=== PATIENT | female | born 1955 | race Hispanic/Latino ===

== ENCOUNTER 2016-09-25 16:32 | Observation (INO) | payer OTHER ==
[2016-09-25 16:34] VITALS: BMI 24.6
[2016-09-25] MEDS ORDERED: Sodium Chloride 0.9% 500 ML IV STA (16:40)
--- NOTE | 2016-09-25 16:44 | ED PDOC ---
Arrival/HPI - General Chief Complaint: Weakness/Neurological Deficit Time Seen by Provider: 09/25/16 16:33 Historian: Patient - History of Present Illness Time/Duration: Prior to Arrival Symptom Onset: Sudden Symptom Course: Improving Severity Level: Moderate Activities at Onset: Rest Associated Symptoms (Text): 09/25/16 16:41 Patient complains of acute onset just prior to arrival of severe lightheadedness and near syncope. She reports that her entire body felt hot. She had generalized numbness. She felt as if her right hand was not present. No chest pain palpitations or dyspnea. No abdominal pain nausea or vomiting. There is not vertigo or a spinning sensation. Patient reports that it is worse when she stands up. She is actually starting to feel much better. She has never experienced this previously. History of migraine headaches, but this is not similar. There is no headache. Past Medical History - Past History Past History: No Previous - Integumentary Hx Dermatological Disorder: No - Musculoskeletal/Rheumatological Hx Musculoskeletal Disorders: No - Gastrointestinal Hx Gastrointestinal Disorders: No - Genitourinary/Gynecological Hx Genitourinary Disorders: No - Psychiatric Hx Psychophysiologic Disorder: Yes Hx Anxiety: Yes Hx Substance Use: No - Anesthesia Hx Anesthesia: No Family/Social History - Physician Review Nursing Documentation Reviewed: Yes Family/Social History: Unknown Family HX Smoking Status: Never Smoked Hx Alcohol Use: Yes Frequency of alcohol use: Socially Hx Substance Use: No Allergies/Home Meds Allergies/Adverse Reactions: Allergies Penicillins Allergy (Verified 09/25/16 16:35) URTICARIA Home Medications: Home Meds Medication Instructions Recorded Confirmed Alprazolam [Xanax] 0.5 mg PO Q6H PRN 09/25/16 09/25/16 Review of Systems - Physician Review All systems were reviewed & negative as marked: Yes - Review of Systems Constitutional: Fatigue. absent: Fevers Respiratory: Normal. absent: SOB, Cough, Wheezing Cardiovascular: absent: Chest Pain, Palpitations, Syncope Gastrointestinal: absent: Abdominal Pain, Nausea, Vomiting Genitourinary Female: absent: Dysuria, Frequency, Hematuria Neurological: absent: Headache, Dizziness, Focal Weakness, Gait Changes, Speech Changes, Facial Droop, Disequilibrium, Seizure Physical Exam Vital Signs Temp Pulse Resp BP Pulse Ox 09/25/16 16:42 77 17 129/72 98 09/25/16 16:36 98.6 F Temperature: Afebrile Blood Pressure: Normal Pulse: Regular Respiratory Rate: Normal Appearance: Positive for: Well-Appearing, Non-Toxic, Comfortable Pain Distress: None Mental Status: Positive for: Alert and Oriented X 3 - Systems Exam Head: Present: Atraumatic, Normocephalic Pupils: Present: PERRL Extroacular Muscles: Present: EOMI Conjunctiva: Present: Normal Ears: Present: NORMAL TM, Normal Canal. No: Erythema Mouth: Present: Moist Mucous Membranes Pharnyx: No: ERYTHEMA, EXUDATE, TONSILS ENLARGED Neck: Present: Normal Range of Motion Respiratory/Chest: Present: Clear to Auscultation, Good Air Exchange. No: Respiratory Distress, Accessory Muscle Use Cardiovascular: Present: Regular Rate and Rhythm, Normal S1, S2. No: Murmurs Abdomen: Present: Normal Bowel Sounds. No: Tenderness, Distention, Peritoneal Signs, Rebound, Guarding Upper Extremity: Present: Normal Inspection. No: Cyanosis, Edema Lower Extremity: Present: Normal Inspection. No: Edema Neurological: Present: GCS=15, CN II-XII Intact, Speech Normal, Motor Func Grossly Intact, Normal Sensory Function, Normal Cerebellar Funct, Gait Normal Skin: Present: Warm, Dry, Normal Color. No: Rashes Psychiatric: Present: Alert, Oriented x 3, Normal Insight, Normal Concentration Medical Decision Making ED Course and Treatment: 09/25/16 16:51 EKG shows normal sinus rhythm rate approximately [address] or T-wave changes 09/25/16 17:44 CT scan of the head as read by the radiologist shows no acute findings. 09/25/16 18:30 Discussed with who requests consults with neurology and cardiology , both of whom have been called. Patient will be placed on a telemetry observation bed. - Lab Interpretations Lab Results: 09/25/16 17:02 09/25/16 17:02 Lab Results 09/25/16 17:02: Sodium 137, Potassium 3.7, Chloride 102, Carbon Dioxide 28, Anion Gap 11, BUN 17, Creatinine 0.8, Est GFR ( Amer) > 60, Est GFR (Non- Af Amer) > 60, Random Glucose 99, Calcium 9.2, Phosphorus 4.1, Magnesium 1.9, Total Bilirubin 0.6, AST 30, ALT 28, Alkaline Phosphatase 98, Lactate Dehydrogenase 529, Total Creatine Kinase 78, Troponin I < 0.01, Total Protein 7.8, Albumin 4.2, Globulin 3.6, Albumin/Globulin Ratio 1.2 09/25/16 17:02: WBC 6.3, RBC 4.49, Hgb 13.2, Hct 39.1, MCV 87.1, MCH 29.4, MCHC 33.8, RDW 15.0 H, Plt Count 236, MPV 11.5 H, Gran % 60.5, Lymph % (Auto) 25.9, Jay % (Auto) 10.3 H, Eos % (Auto) 3.0, Baso % (Auto) 0.3, Gran # 3.84, Lymph # 1.6, Jay # 0.7 H, Eos # 0.2, Baso # 0.02 - RAD Interpretation Radiology Orders: 09/25/16 16:40 HEAD W/O CONTRAST [CT] Stat CHEST PORTABLE [RAD] Stat Chest 1 view shows no infiltrate effusion or cardiomegaly Bus Washer: ED Physician - Medication Orders Current Medication Orders: Discontinued Medications Aspirin (Aspirin Chewable) 324 mg PO ONCE ONE Stop: 09/25/16 18:11 Last Admin: 09/25/16 18:22 Dose: 81 mg Sodium Chloride (Sodium Chloride 0.9%) 500 mls @ 1,000 mls/hr IV .Q30M STA Stop: 09/25/16 17:09 Last Admin: 09/25/16 17:33 Dose: 1,000 mls/hr Disposition/Present on Arrival - Present on Arrival Any Indicators Present on Arrival: No History of DVT/PE: No History of Uncontrolled Diabetes: No Urinary Catheter: No History of Decub. Ulcer: No History Surgical Site Infection Following: None - Disposition Have Diagnosis and Disposition been Completed?: Yes Diagnosis: Near syncope, Weakness Disposition: HOSPITALIZED Disposition Time: 18:31 Patient Plan: Observation, Telemetry Patient Problems: Current Active Problems Problem Status Onset Near syncope Acute Weakness Acute Condition: GOOD Discharge Instructions (ExitCare): Weakness (ED) Referrals: Best Rg MD [Primary Care Provider] - Follow up with primary
[2016-09-25 17:03] LABS: ADD MANUAL DIFF? NO
[2016-09-25 17:11] LABS: BASO # 0.02 K/mm3 (0.0-2.0); BASO % 0.3 % (0.0-3.0); EOS # 0.2 (0.0-0.7); GRAN # 3.84 (1.4-6.5); GRAN % 60.5 % (50.0-68.0); HEMATOCRIT 39.1 % (36.0-48.0); LYMPH # 1.6 (1.2-3.4); LYMPH % 25.9 % (22.0-35.0); MEAN CELL VOLUME 87.1 fL (80.0-105.0); MEAN CORPUSCULAR HEMOGLOBIN 29.4 pg (25.0-35.0); MEAN CORPUSCULAR HGB CONC 33.8 g/dl (31.0-37.0); MEAN PLATELET VOLUME 11.5 fl (7.0-11.0); MONO # 0.7 (0.1-0.6); MONO % 10.3 % (1.0-6.0); PLATELET COUNT 236 10^3/uL (120.0-450.0); WHITE BLOOD COUNT 6.3 10^3/ul (4.5-11.0)
[2016-09-25 17:19] LABS: ALB/GLOB RATIO 1.2 (1.1-1.8); ALKALINE PHOSPHATASE 98 U/L (38-133); ALT/SGPT 28 U/L (7-56); AST/SGOT 30 U/L (15-39); BILIRUBIN,TOTAL 0.6 mg/dL (0.2-1.3); BLOOD UREA NITROGEN 17 mg/dL (7-21); CALCIUM 9.2 mg/dL (8.4-10.5); CARBON DIOXIDE 28 mmol/L (21-33); CHLORIDE 102 mmol/L (95-110); GFR AFRICAN-AMERICAN > 60; GLUCOSE,RANDOM 99 mg/dL (70-110); MAGNESIUM 1.9 mg/dL (1.7-2.2); PHOSPHOROUS 4.1 mg/dL (2.5-4.5); POTASSIUM 3.7 mmol/L (3.6-5.0); SODIUM 137 mmol/L (132-148); TOTAL PROTEIN 7.8 g/dL (5.8-8.3)
--- NOTE | 2016-09-25 17:42 | CT ---
PROCEDURE: CT HEAD WITHOUT CONTRAST. HISTORY: syncope COMPARISON: None available. TECHNIQUE: Axial computed tomography images were obtained through the head/brain without intravenous contrast. Radiation dose: Total exam DLP = 774 mGy-cm. This CT exam was performed using one or more of the following dose reduction techniques: Automated exposure control, adjustment of the mA and/or kV according to patient size, and/or use of iterative reconstruction technique. FINDINGS: HEMORRHAGE: No intracranial hemorrhage. BRAIN: No mass effect or edema. No atrophy or chronic microvascular ischemic changes. VENTRICLES: Unremarkable. No hydrocephalus. CALVARIUM: Unremarkable. PARANASAL SINUSES: Unremarkable as visualized. No significant inflammatory changes. MASTOID AIR CELLS: Unremarkable as visualized. No inflammatory changes. OTHER FINDINGS: None. IMPRESSION: Normal CT of the Head.
--- NOTE | 2016-09-25 18:12 | RAD ---
HISTORY: Syncope. Portable study 16:54. COMPARISON: No prior. FINDINGS: LUNGS: No active pulmonary disease. PLEURA: No significant pleural effusion identified, no pneumothorax apparent. CARDIOVASCULAR: No radiographic findings to suggest acute or significant cardiovascular disease. OSSEOUS STRUCTURES: No significant abnormalities. VISUALIZED UPPER ABDOMEN: Normal. OTHER FINDINGS: None. IMPRESSION: No active disease.
[2016-09-25 18:28] LABS: TROPONIN I < 0.01 ng/mL
--- NOTE | 2016-09-25 18:46 | CARD ---
APPROVED REPORT EKG Measurement Heart [id number] TN [id number] <Conclusion> Normal sinus rhythm Normal ECG
--- NOTE | 2016-09-25 21:45 | CP.PCM.PN ---
Subjective - Date & Time of Evaluation Date of Evaluation: 09/25/16 Time of Evaluation: 21:50 - Subjective Subjective: Patient was seen at bedside because she complained of head ache and anxiety. States that she has dull headache in occipital area for past hour , no dizziness, weakness, paraesthesia, gives history of migraines headache, also feels nervous, is on xanax at home for anxiety. Has no other complaints now. BP 115/54 97.1 * This 60 year old woman was admitted with syncope and lightheadedness. Has PMH of anxiety, migraines, alcohol use. Objective - Vital Signs/Intake and Output Vital Signs (last 24 hours): Temp Pulse Resp BP Pulse Ox 97.1 F L 76 20 115/54 L 95 09/25/16 21:27 09/25/16 21:27 09/25/16 21:27 09/25/16 21:27 09/25/16 21:27 - Constitutional Appears: Well, No Acute Distress - Head Exam Head Exam: ATRAUMATIC, NORMAL INSPECTION, NORMOCEPHALIC - Eye Exam Eye Exam: Normal appearance - ENT Exam ENT Exam: Normal External Ear Exam - Neck Exam Neck Exam: Normal Inspection - Respiratory Exam Respiratory Exam: NORMAL BREATHING PATTERN - Cardiovascular Exam Cardiovascular Exam: absent: JVD - GI/Abdominal Exam GI & Abdominal Exam: absent: Distended - Rectal Exam Rectal Exam: Deferred - Extremities Exam Extremities Exam: Normal Inspection - Back Exam Back Exam: NORMAL INSPECTION - Neurological Exam Neurological Exam: Alert, Oriented x3 - Psychiatric Exam Psychiatric exam: Normal Affect, Normal Mood - Skin Skin Exam: Normal Color Assessment and Plan - Assessment and Plan (Free Text) Assessment: Head ache. Anxiety. Migraines history. Syncope. History alcohol use. Plan: Motrin 800 mg PO x 1. Xanax 0.5 mg PO x 1. Continue present management. Awaiting neurology consultation. Discussed with .
[2016-09-25] MEDS ORDERED: Pneumococcal 23-Valent Vaccine IM ONE (22:17)
[2016-09-26 05:50] VITALS: O2SAT 98
--- NOTE | 2016-09-26 10:22 | CON ---
DATE: 09/25/2016 REQUESTING PHYSICIAN: Dr. Rg. REASON FOR CONSULTATION: Near syncope. HISTORY OF PRESENT ILLNESS: This is a 60-year-old woman with a history of anxiety disorder who state s that she developed intense lightheadedness yesterday while in a store. She had to leave and was br ought to the Emergency Room. She is unaware of any palpitations. She denies any chest pain. She di d have some associated dyspnea. She states she has a history of chronic migraines, but had no migrai ne related symptoms with this event. She has had no prior syncope. Initial electrocardiogram was un remarkable. CT of the head was also performed and was apparently normal. PAST MEDICAL HISTORY: Notable for multiple concussions in the past. She also has a history of the a forementioned migraines. MEDICATIONS: At home included Xanax 0.5 mg q. 6 hours p.r.n. ALLERGIES: SHE HAD A REACTION TO PENICILLIN IN THE PAST. SOCIAL HISTORY: She does not smoke. She drinks occasionally. She is . She is retired. FAMILY HISTORY: Unremarkable for premature heart disease. REVIEW OF SYSTEMS: A 10 point review of systems is notable for the problems mentioned above. She do es notice occasional exertional dyspnea. PHYSICAL EXAMINATION: GENERAL: She is an anxious appearing, middle-aged woman. VITAL SIGNS: Her blood pressure is 100/60 with a pulse of 56 in sinus, respirations are 14. She is afebrile. HEENT: Normocephalic, atraumatic. NECK: Supple, no JVD noted. CHEST: Clear to auscultation and percussion. HEART: PMI normal position. No pathologic murmurs or gallops noted. ABDOMEN: Soft, nontender, normoactive bowel sounds. EXTREMITIES: No clubbing, cyanosis or edema. SKIN: Warm and dry. PSYCHIATRIC: Normal mood and affect. NEUROLOGIC: Alert and oriented x 3. No gross motor or sensory deficits appreciable. DIAGNOSTIC DATA: Electrocardiogram reveals sinus rhythm with no significant abnormalities. Chest x- ray reveals normal cardiac silhouette with clear lung ochoa. White count 6.3, hemoglobin and hemato crit 13.2 and 39.1 with a platelet count of 236,000. Potassium 3.7, BUN and creatinine are 17 and 0. 8, sodium 137. The rest of the chemistries are normal. CK was 78 with a negative troponin. IMPRESSION: 1. Near syncope, no significant findings noted on physical examination or initial workup. Given his tory of anxiety, this may be related to this condition. 2. Rest of problems as noted above. RECOMMENDATIONS: There is no significant suspicion that she has any cardiac ischemic component to he r current symptomatology. A neurology evaluation is pending. If this is unremarkable and her follow up blood work is unrevealing, early discharge can be planned. An outpatient echocardiogram and stres s test can be arranged as needed. From a cardiac standpoint, she appears stable for discharge home o nce cleared by neurology and medicine. Thank you for this consultation. I will be happy to see as needed. Aleksandr Weston MD cc: [id number] TT: 09/26/2016 10:21:04 Confirmation # [id number] Dictation # [id number] jose carlos
--- NOTE | 2016-09-26 10:33 | HP ---
HISTORY OF PRESENT ILLNESS: A 60-year-old white female with history of multiple concussions, anxiety disorder, mild hypertension, family history of CAD in her sister, 55 MD. The patient recently retur chung from [place]. She was shopping when she had an overwhelming episode of weakness and neck discomfo rt associated with some disorientation and confusion. The patient's episode did not pass. The patie nt would have exacerbation of symptoms when she stood. She initially ____ drove herself to the [facility] ency Room, was admitted through the ER. Initial CT was negative. Laboratory data were unremarkable. The patient has no further symptoms this morning. Vital signs are stable. Blood pressure of 99/61 , heart rate 55. LABORATORY DATA: Unremarkable. First set of enzymes was negative. CT was negative. The patient does have a history of complicated migraines in the past associated with right upper extr emity discomfort. The patient did have some loss of feeling and unusual sensation in the right upper extremity, but not on the right lower extremity. The patient denies room spinning. Episode lasted approximately less than 24 hours and started on the day of admission. SOCIAL HISTORY: The patient is nonsmoker, nondrinker, no IV drug abuse. FAMILY HISTORY: As stated. MEDICATIONS: the patient takes Xanax only for anxiety at home on a p.r.n. basis. PAST SURGICAL LHISTORY: None. REVIEW OF SYSTEMS: Unremarkable except for these neurological changes. The patient denies chest vinicius n, diaphoresis, nausea, vomiting, dizziness. Does complain of neck discomfort and right upper extrem ity paraesthesia. IMPRESSION: A 60-year-old white female presenting with neurological changes and a history of migrain e in the past, anxiety disorder, rule out coronary artery disease, rule out neurological pathology. Rule out cardiac pathology. Plan is to do an MRI and MRA of the brain, repeat cardiac enzymes. Card iology and neurology consultation. Best Rg MD cc: [id number] TT: 09/26/2016 10:33:20 nj
[2016-09-26 11:27] LABS: CHOLESTEROL 288 mg/dL (130-200)
[2016-09-26 11:41] LABS: TROPONIN I < 0.01 ng/mL
[2016-09-26 12:40] VITALS: RESP 16
--- NOTE | 2016-09-26 13:43 | CARD ---
APPROVED REPORT EXAM: Two-dimensional and M-mode echocardiogram with Doppler and color Doppler. INDICATION Syncope 2D DIMENSIONS Left Atrium (2D)3.5 (1.6-4.0cm)IVSd1.0 (0.7-1.1cm) Aortic Root (2D)3.3 (2.0-3.7cm)LVDd4.2 (3.9-5.9cm) PWd1.0 (0.7-1.1cm)LVDs3.1 (2.5-4.0cm) FS (%) 28.1 %LVEF (%)54.7 (>50%) M-Mode DIMENSIONS Aortic Cusp Exc.2.20 (1.5-2.0cm) Aortic Valve AoV Peak Cklgvuwx563.0cm/Mayra Peak GR.6mmHg Mitral Valve MV E Hnipqvvf49.1cm/sMV A Hmuevgfq07.3cm/sE/A ratio1.5 TDI Lateral E' Peak V12.90cm/sMedial E' Peak V6.24cm/sE/Lateral E'4.7 E/Medial E'9.8 Pulmonary Valve PV Peak Fozjtpmw81.6cm/sPV Peak Grad.2mmHg Tricuspid Valve TR Peak Trthrubu437yc/sRAP [id number] Peak Gr.11mmHg [id number] LEFT VENTRICLE The left ventricle is normal size. There is normal left ventricular wall thickness. The left ventricular function is normal. The left ventricular ejection fraction is within the normal range. There is normal LV segmental wall motion. The left ventricular diastolic function is normal. RIGHT VENTRICLE The right ventricle is normal size. There is normal right ventricular wall thickness. The right ventricular systolic function is normal. ATRIA The left atrium size is normal. The right atrium size is normal. AORTIC VALVE The aortic valve is normal in structure. No aortic regurgitation is present. MITRAL VALVE The mitral valve is mildly thickened. There is no mitral valve regurgitation noted. TRICUSPID VALVE The tricuspid valve is normal in structure. There is no pulmonary hypertension. GREAT VESSELS The aortic root is normal in size. The IVC is normal in size and collapses >50% with inspiration. PERICARDIAL EFFUSION There is no pericardial effusion. <Conclusion> The left ventricle is normal size. There is normal left ventricular wall thickness. The left ventricular function is normal. The left ventricular ejection fraction is within the normal range. There is normal LV segmental wall motion. The left ventricular diastolic function is normal.
[2016-09-26 17:52] VITALS: BP 129/84; PULSE 62; TEMP 97.9
--- NOTE | 2016-09-27 09:10 | MRI ---
PROCEDURE: MRI BRAIN WITHOUT CONTRAST HISTORY: near syncope COMPARISON: None. TECHNIQUE: Multiplanar, multisequence MR images of the brain were obtained without intravenous contrast enhancement. FINDINGS: HEMORRHAGE: None DWI: No evidence of an acute or early subacute infarction. BRAIN PARENCHYMA: No mass effect or edema. No atrophy or chronic microvascular ischemic changes. VENTRICLES: Unremarkable. No hydrocephalus. CRANIUM: Unremarkable. ORBITS: Grossly unremarkable. PARANASAL SINUSES/MASTOIDS: Clear VASCULAR SYSTEM: Skull base flow voids intact. OTHER FINDINGS: None. IMPRESSION: Unremarkable non contrast enhanced MRI of the brain.
--- NOTE | 2016-09-27 09:12 | MRI ---
PROCEDURE: Magnetic Resonance Angiography Brain HISTORY: syncope COMPARISON: None available. TECHNIQUE: 3D time of flight MR angiography of the intracranial arteries was performed. Rotating maximum intensity projection images were generated. FINDINGS: INTERNAL CEREBRAL ARTERIES: Unremarkable. The skull base, petrous, cavernous and supraclinoid segments are bilaterally widely patient. ANTERIOR CEREBRAL ARTERIES: Unremarkable. A1 and A2 segments are widely patent. Smaller distal branches unremarkable, as visualized. MIDDLE CEREBRAL ARTERIES: Unremarkable. M1 and M2 segments are widely patent. Perisylvian branches grossly symmetric. POSTERIOR CIRCULATION: Basilar Artery: Unremarkable. Distal Vertebral Arteries: Unremarkable. Posterior Cerebral Arteries: Unremarkable. Posterior Inferior Cerebellar Arteries: Unremarkable. ANEURYSM/ VASCULAR MALFORMATIONS: None. OTHER FINDINGS: None. IMPRESSION: Unremarkable MR angiography of the brain.
--- NOTE | 2016-09-27 19:53 | DS ---
A 60-year-old white female admitted to the hospital with change in mental status, confusion state, an d also paresthesias of the right upper extremity. The patient was admitted. Symptoms had disappeare d. She had an MRI of the brain and MRA of the brain. Both were normal. An echocardiogram, which yenni wed only some left ventricular dysfunction. She was seen in consultation by Dr. Weston. Laborator y data were unremarkable. Head CT was negative. The patient was able to be discharged home in impro donny condition. FINAL DISCHARGE DIAGNOSIS: Complicated migraine. Best Rg MD cc: [id number] TT: 09/27/2016 19:52:18 jose carlos
--- NOTE | 2016-09-28 07:27 | CON ---
DATE: 09/26/2016 HISTORY OF PRESENT ILLNESS: This is a 60-year-old female who came to the hospital with severe lighth eadedness and near syncopal episode. She also has generalized numbness and in the right hand w as not present. No chest pain, no palpitations, no nausea, no vomiting, no spinning sensation. Angelique levin experienced these symptoms previously. Recently came from a tour around [place]. PAST MEDICAL HISTORY: As above. ALLERGIES: PENICILLIN. HOME MEDICATIONS: Xanax REVIEW OF SYSTEMS: A 10-point review of system was negative. PHYSICAL EXAMINATION: VITAL SIGNS: Blood pressure 129/72. HEENT: Normocephalic, atraumatic. NECK: Supple. NEUROLOGIC: Alert, awake, oriented x 3. No aphasia. Cranial nerves II through XII were tested. Pu pils reactive. EOM intact. Moves all the extremities equally spontaneously. Deep tendon reflexes 1 +. Both plantars are downgoing. Sensory appears intact. Cerebellar and gait is normal. IMPRESSION: Syncopal episode, less likely seizure and CAT scan of the head was negative. PLAN: Continue present management. Will followup. Naman Angela MD cc: [id number] TT: 09/26/2016 22:38:37 Confirmation # [id number] Dictation # [id number] dn 09/28/2016 06:26:29
== END 2016-09-26 19:20 | disposition home or self-care (01) ==
LOC: ED 16:32 → ERH 18:29 → 2RSO 21:15
PROVIDERS: ADMIT Internal Medicine; ATTEND Internal Medicine
DX: R55 Syncope and collapse (principal); R53.1 Weakness; R20.9 Unspecified disturbances of skin sensation
CPT/HCPCS: 36415; 70450; 70545; 70551; 71010; 80053; 82465; 82550; 82607; 83615; 83735; 84100; 84484; 85025; 85651; 86039; 93005; 93306; 99285; G0378; J7040